=== PATIENT | male | born 1955 | race Caucasian/White ===

== ENCOUNTER → 2019-08-11 12:07 | Outpatient (CLI) | payer MEDICARE, BC ==
[2016-07-10 13:01] VITALS: BMI 23.0
[~2019-08-11 12:07] MED LIST: ADVAIR 100/501 DISK INH; ASPIRIN EC325 M1 PO; BICARB PO; COUMADIN2.5 MG PO; COUMADIN5 MG PO; FOLBEE PLUS TAB1 TAB PO; HYDROCODON-ACE1 EAC7 PO; LASIX20 MG; LOVENOX40 MG/0.4 SC; PACERONE200 MG PO; PROVENTIL HFA6.7 GM INH; RENVELA800 MG PO; SODIUM BICARBO325 MG PO; TENORMIN100 MG PO; TOPROL XL100 MG PO; TUMS500 MG PO
== END | disposition home or self-care (01) ==
LOC: D.CT 12:07
PROVIDERS: ATTEND Surgery
DX: I87.1 Compression of vein (principal); J42 Unspecified chronic bronchitis; R49.0 Dysphonia

== ENCOUNTER 2019-08-25 07:53 | Outpatient (CLI) | payer MEDICARE, BC ==
[~2019-08-25] VITALS: Ht 185.4 cm; Wt 86.2 kg
[2019-08-25 08:05] LABS: BASOPHILS 0.4 % (0-2); EOSINOPHILS 3.2 % (0-7); HEMATOCRIT 35.6 % (42.0-54.0); HEMOGLOBIN 11.4 g/dL (13.5-17.5); IMMATURE GRANULOCYTES 0.4 % (0-5); LYMPHOCYTES 22.7 % (15-50); MCH 30.4 pg (26.0-34.0); MCV 94.9 fL (80.0-100.0); MEAN PLATELET VOLUME 11.2 fL (7.4-10.4); MONOCYTES 11.3 % (2-11); PLATELET COUNT 107 10x3/uL (130-400); RBC 3.75 10x6/uL (4.20-6.10); RDW 15.7 % (11.5-14.5); WBC 4.7 10x3/uL (4.8-10.8)
[2019-08-25 08:18] LABS: APTT 32.2 SECONDS (22.8-39.4); INR 1.11 (0.85-1.17); PROTIME 13.8 SECONDS (11.6-15.0)
[2019-08-25 08:19] LABS: ANION GAP 9.7 mmol/L (8-16); CARBON DIOXIDE 31.1 mmol/L (21.0-32.0); CREATININE - SERUM 5.1 mg/dL (0.6-1.3); POTASSIUM - SERUM 3.8 mmol/L (3.5-5.1)
[2019-08-25 08:37] VITALS: BP 120/74; Ht 185.4 cm; Wt 86.2 kg
== END 2019-08-25 12:50 | disposition home or self-care (01) ==
LOC: D.SP 07:53 → D.RAD 10:00 → D.SP 10:00
PROVIDERS: General Practice; ATTEND Surgery
DX: N18.6 End stage renal disease (principal); Z53.9 Procedure and treatment not carried out, unspecified reason